=== PATIENT | male | born 1975 | race Caucasian/White ===

== ENCOUNTER 2017-08-29 19:37 | Emergency (ER) | payer OTHER ==
[~2017-08-29] VITALS: Ht 177.8 cm; Wt 119.3 kg
[~2017-08-29 19:37] MED LIST: ADVIL PM LI1 CAPSULE PO; ALPRAZOLAM0.25 M2 PO; ASPIR 8181 MG PO; ASPIRIN325 MG PO; ATORVASTATIN CA80 MG PO; CARVEDILOL6.25 MG PO; CINNAMON500 MG PO; CYANOCOBALAM1000 MCG PO; Ceftin PO; Coreg PO; DOXYCYCLINE HY100 MG PO; Ecotrin PO; FLAX OIL1000 MG PO; FLAXSEED OIL1000 MG PO; FLEXERIL10 MG PO; FORTAMET500 MG PO; Flaxseed Oil PO; GLIPIZIDE10 MG PO; GLIPIZIDE5 M1 PO; GLIPIZIDE5 MG PO; GLUCOPHAGE1000 MG PO; GLUCOTROL5 MG PO; GLYBURIDE2.5 MG PO; Glucophage PO; Glucotrol PO; IRON325 M1 PO; JANUMET 50/11 TABLET PO; LEVEMIR FL100 UNIT/1 SC; LEXAPRO10 MG PO; LEXAPRO20 MG PO; LISINOPRIL10 MG PO; LISINOPRIL5 MG PO; LODINE500 MG PO; Lexapro PO; MELATONIN3 MG PO; METFORMIN HCL1000 M1 PO; MULTIPLE VITAM1 EACH PO; MULTIVITAMIN1 EAC1 PO; NEURONTIN300 MG PO; NORCO 7.5/321 TABLET PO; NOVOLOG PE100 UNITS/ SC; Nitrostat,NitroQuick SL; ONGLYZA5 MG PO; OXYCODONE HCL20 M1 PO; PANTOPRAZOLE SO40 MG PO; PAPAYA ENZYME1 EACH PO; PERCOCET 5/31 TABLET PO; PLAVIX75 MG PO; PROTONIX40 MG PO; Plavix PO; SIMVASTATIN80 MG PO; TYLENOL WITH C1 EACH PO; Tessalon Perle PO; Theragran PO; Tylenol Regular Stre PO; VICODIN 5-3001 EACH PO; VITAMIN B12 100MCG PO; VITAMIN C1000 MG PO; Vicodin,Norco 5/325 PO; Xanax PO; ZESTRIL,PRINIVI10 MG PO; ZOCOR80 MG PO; Zestril,Prinivil PO; Zithromax PO; Zocor PO
[2017-08-30] MEDS ORDERED: FIORICET 50-301 EAC1 PO (01:22)
[2017-08-30] MEDS ORDERED: ZOFRAN ODT4 MG PO (01:22)
[2017-08-30 02:25] VITALS: BP 127/74
== END 2017-08-30 02:26 | disposition home or self-care (01) ==
LOC: EME 19:37 → EXP 19:37
DX: G43.909 Migraine, unspecified, not intractable, without status migrainosus (principal); F17.200 Nicotine dependence, unspecified, uncomplicated; E11.9 Type 2 diabetes mellitus without complications; Z79.4 Long term (current) use of insulin; E78.5 Hyperlipidemia, unspecified; I25.2 Old myocardial infarction; Z95.5 Presence of coronary angioplasty implant and graft; Z79.82 Long term (current) use of aspirin; Z88.2 Allergy status to sulfonamides
CPT/HCPCS: 70450; 99281; 99284; J1200; J1885; J2765; J7030